=== PATIENT | male | born 1945 | race Caucasian/White ===

== ENCOUNTER → 2024-09-11 | Outpatient (CLI) | payer MEDICARE, SELFPAY ==
--- NOTE | 2024-09-11 12:12 | EKG_ITS ---
[facility] Test Date: 2024-09-11 Pat Name: KIKE FOSTER Department: Room: - Gender: Male [employer]: RT STUDENT : 1945 Requested By: Michael Cornell Order Number: [id number] Reading MD: Michael Cornell Measurements Intervals [place] Rate: 66 P: 75 MT: 156 QRS: 83 QRSD: 142 T: 67 QT: 372 QTc: 391 Interpretive Statements SINUS RHYTHM RIGHT BUNDLE BRANCH BLOCK No previous ECG available for comparison /[id number].pdf
== END | disposition home or self-care (01) ==
PROVIDERS: PCP Family Medicine; Referring Provider Student in an Organized Health Care Education/Training Program; Visit Provider Student in an Organized Health Care Education/Training Program
DX: Z01.818 Encounter for other preprocedural examination (principal); H25.811 Combined forms of age-related cataract, right eye
CPT/HCPCS: 93005